=== PATIENT | female | born 1960 | race Caucasian/White ===

== ENCOUNTER 2021-02-27 05:41 | Emergency (ER) | payer BC ==
[~2021-02-27] VITALS: Ht 160 cm; Wt 64.9 kg
[2021-02-27] MEDS ORDERED: NAPROXEN250 MG PO (06:04)
== END 2021-02-27 06:28 | disposition home or self-care (01) ==
LOC: ED 05:41
DX: S60.212A Contusion of left wrist, initial encounter (principal); W19.XXXA Unspecified fall, initial encounter; Y93.K1 Activity, walking an animal; Y92.89 Other specified places as the place of occurrence of the external cause; Y99.8 Other external cause status

== ENCOUNTER 2021-10-09 06:49 | Inpatient (IN) | payer BC ==
[~2021-10-09] VITALS: Ht 162.6 cm; Wt 72.1 kg
[~2021-10-09 06:49] MED LIST: NAPROXEN250 MG PO
[2021-10-09 07:20] VITALS: BP 116/73
[2021-10-09 08:32] LABS: BASO % 0.4 % (0.0-1.0); EOS % 0.5 % (1.0-4.0); HEMATOCRIT 43.9 % (37.0-47.0); LYMPH # 0.7 10*3/uL (1.3-4.4); LYMPH % 8.7 % (27.0-41.0); MEAN CELL VOLUME 94.8 fl (81.0-99.0); MEAN CORPUSCULAR HGB 32.4 pg (27.0-31.0); MEAN CORPUSCULAR HGB CONC 34.2 g/dl (33.0-37.0); MEAN PLATELET VOLUME 9.9 fl (9.6-12.3); MONO # 1.1 10*3/uL (0.1-1.0); MONO % 14.5 % (3.0-9.0); NEUT # 5.8 10*3/uL (2.3-7.9); NEUT % 75.6 % (47.0-73.0); PLATELET COUNT AUTOMATED 284 10*3/uL (130-400); RED BLOOD COUNT 4.63 10*6/uL (4.10-5.10); RED CELL DISTRI WIDTH 12.4 % (0-14.5); WHITE BLOOD COUNT 7.7 10*3/uL (4.8-10.8)
[2021-10-09 08:46] LABS: ALKALINE PHOSPHATASE 73 U/L (45-117); BUN 16 mg/dl (7-24); CHLORIDE 93 mmol/L (98-107); CREATININE 0.81 mg/dL (0.55-1.02); LIPASE 65 U/L (73-393); POTASSIUM 3.6 mmol/L (3.5-5.1); SGOT/AST 27 IU/L (3-35); SGPT/ALT 29 U/L (12-78); SODIUM 132 mmol/L (136-145); TOTAL PROTEIN 8.1 gm/dL (6.4-8.2)
[2021-10-09 09:52] LABS: BILIRUBIN Negative (Negative); BLOOD Negative (Negative); CLARITY Clear (Clear); COLOR Dark Yellow (Yellow); GLUCOSE Negative (Negative); KETONE 3+ (Negative); LEUKO ESTERASE Negative (Negative); NITRITE Negative (Negative); PH 5.5 (4.5-8.0); SPECIFIC GRAVITY >= 1.030 (1.001-1.030)
[2021-10-09 10:14] LABS: BACTERIA TRACE
[2021-10-09 11:48] VITALS: BP 126/61
[2021-10-09 14:14] VITALS: BP 123/60
[2021-10-09 14:30] VITALS: BP 142/72
[2021-10-09 16:00] VITALS: BP 146/61
[2021-10-09 20:00] VITALS: BP 129/60
[2021-10-10] VITALS (11 sets, daily range): BP systolic 107–153; BP diastolic 53–80
[2021-10-10 06:25] LABS: BASO # 0.1 10*3/uL (0.0-0.1); BASO % 0.8 % (0.0-1.0); EOS # 0.1 10*3/uL (0.0-0.4); EOS % 1.5 % (1.0-4.0); HEMATOCRIT 39.8 % (37.0-47.0); LYMPH # 1.1 10*3/uL (1.3-4.4); LYMPH % 18.2 % (27.0-41.0); MEAN CELL VOLUME 95.7 fl (81.0-99.0); MEAN CORPUSCULAR HGB CONC 33.4 g/dl (33.0-37.0); MEAN PLATELET VOLUME 9.9 fl (9.6-12.3); MONO % 16.9 % (3.0-9.0); NEUT # 3.8 10*3/uL (2.3-7.9); NEUT % 62.3 % (47.0-73.0); PLATELET COUNT AUTOMATED 261 10*3/uL (130-400); RED BLOOD COUNT 4.16 10*6/uL (4.10-5.10); RED CELL DISTRI WIDTH 12.3 % (0-14.5)
[2021-10-10 06:37] LABS: ALKALINE PHOSPHATASE 57 U/L (45-117); BUN 12 mg/dl (7-24); CHLORIDE 105 mmol/L (98-107); CHOLESTEROL 169 mg/dL (<200); FREE T4 1.24 ng/dl (0.76-1.46); LDL CHOLESTEROL 78 mg/dL (9-159); POTASSIUM 3.1 mmol/L (3.5-5.1); SGPT/ALT 24 U/L (12-78); SODIUM 137 mmol/L (136-145); TOTAL PROTEIN 6.5 gm/dL (6.4-8.2); TRIGLYCERIDES 144 mg/dl (<150)
[2021-10-10 06:44] LABS: CREATININE 0.68 mg/dL (0.55-1.02); SGOT/AST 16 IU/L (3-35)
[2021-10-10 07:43] LABS: VITAMIN D, 25-HYDROXY 30.5 ng/mL (30-100)
[2021-10-11] VITALS: BP 120/63
[2021-10-11 06:14] LABS: BUN 9 mg/dl (7-24); CHLORIDE 103 mmol/L (98-107); CREATININE 0.87 mg/dL (0.55-1.02); POTASSIUM 3.8 mmol/L (3.5-5.1); SODIUM 135 mmol/L (136-145)
[2021-10-11 06:42] LABS: HEMATOCRIT 40.4 % (37.0-47.0); MEAN CELL VOLUME 94.4 fl (81.0-99.0); MEAN CORPUSCULAR HGB 32.2 pg (27.0-31.0); MEAN CORPUSCULAR HGB CONC 34.2 g/dl (33.0-37.0); MEAN PLATELET VOLUME 10.1 fl (9.6-12.3); PLATELET COUNT AUTOMATED 288 10*3/uL (130-400); RED BLOOD COUNT 4.28 10*6/uL (4.10-5.10); RED CELL DISTRI WIDTH 12.2 % (0-14.5); WHITE BLOOD COUNT 7.4 10*3/uL (4.8-10.8)
[2021-10-11 06:45] LABS: MANUAL DIFF REFLEX YES
[2021-10-11 07:45] LABS: TOTAL CELLS COUNTED 100 #CELLS
[2021-10-11 07:46] LABS: BURR CELLS FEW; PLATELET SUFFICIENCY NORMAL (NORMAL); TOXIC GRANULATION SLIGHT; VACUOLATION OF NEUTROPHILS SLIGHT
[2021-10-11 08:00] VITALS: BP 102/56
[2021-10-11 12:00] VITALS: BP 104/46
[2021-10-11 16:00] VITALS: BP 101/46
[2021-10-11 20:00] VITALS: BP 112/60
[2021-10-12] VITALS: BP 111/56
[2021-10-12 06:43] LABS: HEMATOCRIT 35.5 % (37.0-47.0); MEAN CELL VOLUME 92.4 fl (81.0-99.0); MEAN CORPUSCULAR HGB 32.8 pg (27.0-31.0); MEAN CORPUSCULAR HGB CONC 35.5 g/dl (33.0-37.0); MEAN PLATELET VOLUME 10.3 fl (9.6-12.3); PLATELET COUNT AUTOMATED 256 10*3/uL (130-400); RED BLOOD COUNT 3.84 10*6/uL (4.10-5.10); RED CELL DISTRI WIDTH 12.6 % (0-14.5); WHITE BLOOD COUNT 11.3 10*3/uL (4.8-10.8)
[2021-10-12 06:45] LABS: MANUAL DIFF REFLEX YES
[2021-10-12 06:50] LABS: BUN 8 mg/dl (7-24); CHLORIDE 102 mmol/L (98-107); CREATININE 0.58 mg/dL (0.55-1.02); POTASSIUM 2.9 mmol/L (3.5-5.1); SODIUM 134 mmol/L (136-145)
[2021-10-12 07:21] LABS: TOTAL CELLS COUNTED 100 #CELLS
[2021-10-12 07:22] LABS: PLATELET SUFFICIENCY NORMAL (NORMAL); TOXIC GRANULATION SLIGHT; VACUOLATION OF NEUTROPHILS MODERATE
[2021-10-12 07:23] LABS: DOHLE BODIES FEW
[2021-10-12 08:00] VITALS: BP 125/60
[2021-10-12 12:00] VITALS: BP 122/59
[2021-10-12 16:00] VITALS: BP 122/58
[2021-10-12 20:00] VITALS: BP 122/64
[2021-10-13] VITALS: BP 133/64
[2021-10-13 05:25] LABS: BUN 6 mg/dl (7-24); CHLORIDE 100 mmol/L (98-107); CREATININE 0.55 mg/dL (0.55-1.02); HEMATOCRIT 35.7 % (37.0-47.0); MEAN CELL VOLUME 92.7 fl (81.0-99.0); MEAN CORPUSCULAR HGB 32.5 pg (27.0-31.0); MEAN PLATELET VOLUME 10.4 fl (9.6-12.3); PLATELET COUNT AUTOMATED 293 10*3/uL (130-400); RED BLOOD COUNT 3.85 10*6/uL (4.10-5.10); RED CELL DISTRI WIDTH 12.6 % (0-14.5); SODIUM 133 mmol/L (136-145); WHITE BLOOD COUNT 18.2 10*3/uL (4.8-10.8)
[2021-10-13 05:34] LABS: MANUAL DIFF REFLEX YES
[2021-10-13 06:09] LABS: TOTAL CELLS COUNTED 100 #CELLS
[2021-10-13 06:10] LABS: PLATELET SUFFICIENCY NORMAL (NORMAL); TOXIC GRANULATION SLIGHT
[2021-10-13 08:00] VITALS: BP 130/54
[2021-10-13 12:00] VITALS: BP 94/66
[2021-10-13 16:00] VITALS: BP 120/67
[2021-10-13 20:00] VITALS: BP 138/56
[2021-10-14] VITALS: BP 134/57
[2021-10-14 06:01] LABS: BUN 6 mg/dl (7-24); CHLORIDE 105 mmol/L (98-107); CREATININE 0.39 mg/dL (0.55-1.02); POTASSIUM 2.7 mmol/L (3.5-5.1); SODIUM 141 mmol/L (136-145)
[2021-10-14 06:19] LABS: HEMATOCRIT 31.9 % (37.0-47.0); MEAN CELL VOLUME 94.4 fl (81.0-99.0); MEAN CORPUSCULAR HGB 32.2 pg (27.0-31.0); MEAN CORPUSCULAR HGB CONC 34.2 g/dl (33.0-37.0); MEAN PLATELET VOLUME 10.5 fl (9.6-12.3); PLATELET COUNT AUTOMATED 305 10*3/uL (130-400); RED BLOOD COUNT 3.38 10*6/uL (4.10-5.10)
[2021-10-14 06:22] LABS: MANUAL DIFF REFLEX YES
[2021-10-14 07:25] LABS: PLATELET SUFFICIENCY NORMAL (NORMAL); TOTAL CELLS COUNTED 100 #CELLS; TOXIC GRANULATION MODERATE; VACUOLATION OF NEUTROPHILS SLIGHT
[2021-10-14 07:26] LABS: POLYCHROMASIA SLIGHT
[2021-10-14 08:34] VITALS: BP 135/68
[2021-10-14 12:00] VITALS: BP 139/66
[2021-10-14 16:00] VITALS: BP 130/61
[2021-10-14 20:00] VITALS: BP 124/62
[2021-10-15] VITALS: BP 135/82
[2021-10-15 04:51] LABS: HEMATOCRIT 31.5 % (37.0-47.0); MEAN CELL VOLUME 94.3 fl (81.0-99.0); MEAN PLATELET VOLUME 9.6 fl (9.6-12.3); PLATELET COUNT AUTOMATED 339 10*3/uL (130-400); RED BLOOD COUNT 3.34 10*6/uL (4.10-5.10); RED CELL DISTRI WIDTH 13.4 % (0-14.5); WHITE BLOOD COUNT 15.2 10*3/uL (4.8-10.8)
[2021-10-15 05:07] LABS: MANUAL DIFF REFLEX YES
[2021-10-15 05:16] LABS: ALKALINE PHOSPHATASE 75 U/L (45-117); BUN 7 mg/dl (7-24); CHLORIDE 104 mmol/L (98-107); CREATININE 0.42 mg/dL (0.55-1.02); POTASSIUM 2.7 mmol/L (3.5-5.1); SGOT/AST 51 IU/L (3-35); SGPT/ALT 27 U/L (12-78); SODIUM 138 mmol/L (136-145); TOTAL PROTEIN 5.1 gm/dL (6.4-8.2)
[2021-10-15 05:49] LABS: BASOPHILS 1 % (0-1); TOTAL CELLS COUNTED 100 #CELLS
[2021-10-15 05:50] LABS: PLATELET SUFFICIENCY NORMAL (NORMAL); TOXIC GRANULATION MODERATE; VACUOLATION OF NEUTROPHILS SLIGHT
[2021-10-15 06:19] LABS: ACT PARTIAL THROMBO TIME 26.2 SECONDS (20.0-32.1); INTERNATIONAL NORM RATIO 1.1 (2.0-3.5)
[2021-10-15 08:00] VITALS: BP 145/75
[2021-10-15 12:00] VITALS: BP 138/72
[2021-10-15 15:49] VITALS: BP 148/74
[2021-10-15 20:00] VITALS: BP 154/76
[2021-10-16] VITALS: BP 149/68
[2021-10-16 05:59] LABS: HEMATOCRIT 32.2 % (37.0-47.0); MEAN CELL VOLUME 94.2 fl (81.0-99.0); MEAN CORPUSCULAR HGB 31.6 pg (27.0-31.0); MEAN CORPUSCULAR HGB CONC 33.5 g/dl (33.0-37.0); MEAN PLATELET VOLUME 9.4 fl (9.6-12.3); PLATELET COUNT AUTOMATED 412 10*3/uL (130-400); RED BLOOD COUNT 3.42 10*6/uL (4.10-5.10); RED CELL DISTRI WIDTH 13.4 % (0-14.5); WHITE BLOOD COUNT 15.8 10*3/uL (4.8-10.8)
[2021-10-16 06:11] LABS: BUN 6 mg/dl (7-24); CHLORIDE 102 mmol/L (98-107); CREATININE 0.41 mg/dL (0.55-1.02); POTASSIUM 2.9 mmol/L (3.5-5.1); SODIUM 136 mmol/L (136-145)
[2021-10-16 06:36] LABS: MANUAL DIFF REFLEX YES
[2021-10-16 07:55] LABS: PLATELET SUFFICIENCY HIGH (NORMAL); TOTAL CELLS COUNTED 100 #CELLS
== END 2021-10-16 08:27 | disposition short-term general hospital (02) | DRG 342 ==
LOC: ED 06:49 → EDHOLD 10:53 → 5E 10:53 → EDHOLD 11:22 → 5E 13:53
PROVIDERS: Emergency Medicine; Family Medicine; Internal Medicine; Registered Nurse; ADMIT Internal Medicine; ATTEND Internal Medicine
PROC: 0D9670Z Drainage of Stomach with Drainage Device, Via Natural or Artificial Opening (ICD-10-PCS; 2021-10-09)
PROC: 0DTJ4ZZ Resection of Appendix, Percutaneous Endoscopic Approach (ICD-10-PCS; principal; 2021-10-10)
PROC: 3E0T3BZ Introduction of Anesthetic Agent into Peripheral Nerves and Plexi, Percutaneous Approach (ICD-10-PCS; 2021-10-10)
PROC: 3E0T33Z Introduction of Anti-inflammatory into Peripheral Nerves and Plexi, Percutaneous Approach (ICD-10-PCS; 2021-10-10)
DX: K37 Unspecified appendicitis (principal); K56.609 Unspecified intestinal obstruction, unspecified as to partial versus complete obstruction; E87.2 Acidosis; E87.1 Hypo-osmolality and hyponatremia; E44.0 Moderate protein-calorie malnutrition; R73.9 Hyperglycemia, unspecified; K76.0 Fatty (change of) liver, not elsewhere classified; Z82.49 Family history of ischemic heart disease and other diseases of the circulatory system; Z68.27 Body mass index [BMI] 27.0-27.9, adult